=== PATIENT | female | born 1965 | race Caucasian/White ===

== ENCOUNTER 2018-05-27 06:09 | Inpatient (IN) | payer MEDICARE, OTHER ==
--- NOTE | 2018-05-27 06:15 | C.PDOC ---
History Of Present Illness Patient presents to the ER with a complaint of mid epigastric pain associated with some nausea and decreased po intake since yesterday. Patient was recently started on z pack and cough medications for bronchitis. Denies vomiting, fever, or chills. Time Seen by Provider: 05/27/18 06:15 History Per: Patient History/Exam Limitations: no limitations Onset/Duration Of Symptoms: Days (Yesterday) Current Symptoms Are (Timing): Still Present Context: Other Severity: Moderate Pain Scale Rating Of: 4 Location Of Pain/Discomfort: Epigastric Radiation Of Pain To:: None Quality Of Discomfort: Unable To Describe Associated Symptoms: Nausea, Other (Decreased po intake). denies: Fever, Chills, Vomiting Exacerbating Factors: None Alleviating Factors: None Recent travel outside of the [place]: No Additional History Per: Family Abnormal Vaginal Bleeding: No Past Medical History Reviewed: Historical Data, Nursing Documentation, Vital Signs - Medical History PMH: Back Problems, Diabetes, HTN, Hypercholesterolemia, Hypothyroidism Family History: States: No Known Family Hx - Social History Hx Tobacco Use: No Hx Alcohol Use: No Hx Substance Use: No - Immunization History Hx Tetanus Toxoid Vaccination: No Hx Influenza Vaccination: Yes Hx Pneumococcal Vaccination: No Review Of Systems Constitutional: Positive for: Other (Decreased PO intake). Negative for: Fever, Chills Cardiovascular: Negative for: Chest Pain, Palpitations Respiratory: Negative for: Cough, Shortness of Breath Gastrointestinal: Positive for: Nausea, Abdominal Pain. Negative for: Vomiting Neurological: Negative for: Weakness, Numbness Physical Exam - Physical Exam Appears: Non-toxic Skin: Warm, Dry Head: Normacephalic Oral Mucosa: Moist Neck: Trachea Midline, Supple Chest: Symmetrical, No Tenderness Cardiovascular: Rhythm Regular Respiratory: No Rales, No Rhonchi, No Wheezing Gastrointestinal/Abdominal: Soft, Tenderness (Mid epigastric), No Guarding, No Rebound Back: No CVA Tenderness Extremity: Normal ROM Extremity: Bilateral: Atraumatic Neurological/Psych: Oriented x3 Gait: Steady ED Course And Treatment Progress Note: Blood work and urinalysis ordered. IV fluids, morphine, protonix, and zofran administered. Disposition Counseled Patient/Family Regarding: Studies Performed, Diagnosis - Disposition Disposition Time: 06:15 Condition: FAIR - Clinical Impression Clinical Impression: Abdominal pain - Scribe Statement The provider has reviewed the documentation as recorded by the Scribe Quentin Beach All medical record entries made by the Scribe were at my direction and personally dictated by me. I have reviewed the chart and agree that the record accurately reflects my personal performance of the history, physical exam, medical decision making, and the department course for this patient. I have also personally directed, reviewed, and agree with the discharge instructions and disposition. Physician Patient Turnover Patient Signed Over To: Maykel Lua Handoff Comments: pending labs, re-eval and dispo
[2018-05-27] MEDS ORDERED: Sodium Chloride 0.9% 1,000 ML IV ONE ×2 (06:16→07:08)
[2018-05-27 06:21] VITALS: BMI 30.9
[2018-05-27 06:36] LABS: VENOUS BLOOD GAS BASE EXCESS -0.9 mmol/L (0.0-2.0); VENOUS BLOOD GAS PCO2 26 mmHg (40-60); VENOUS BLOOD GAS PO2 33 mm/Hg (30-55); VENOUS BLOOD PH 7.51 (7.32-7.43)
[2018-05-27] MEDS ORDERED: Piperacillin/Tazobact 3.375 gm 100 ML IVPB STA (06:40)
[2018-05-27 06:45] LABS: HCG,QUALITATIVE URINE NEGATIVE (NEGATIVE)
[2018-05-27] MEDS ORDERED: Piperacillin/Tazobact 3.375 gm 100 ML IVPB ONE (06:45)
[2018-05-27 06:51] LABS: BASO # 0.1 K/uL (0.0-0.2); BASO % 0.7 % (0.0-2.0); EOS % 0.2 % (0.0-4.0); HEMOGLOBIN 16.4 g/dL (11.0-16.0); LYMPH # 1.8 K/uL (1.0-4.3); LYMPH % 18.6 % (20.0-40.0); MEAN CELL VOLUME 88.2 fL (81.0-99.0); MEAN CORPUSCULAR HEMOGLOBIN 30.5 pg (27.0-31.0); MEAN CORPUSCULAR HGB CONC 34.6 g/dL (33.0-37.0); MEAN PLATELET VOLUME 8.5 fL (7.2-11.7); MONO # 0.4 K/uL (0.0-0.8); NEUT # 7.6 K/uL (1.8-7.0); NEUT % 76.5 % (50.0-75.0); NRBC % 0.1 % (0.0-2.0); RBC 5.36 Mil/uL (3.80-5.20); RED CELL DISTRIBUTION WIDTH 13.4 % (11.5-14.5); WHITE BLOOD COUNT 9.9 K/uL (4.8-10.8)
[2018-05-27 07:14] LABS: ALB/GLOB RATIO 1.2 (1.0-2.1); ALBUMIN 5.3 g/dL (3.5-5.0); ALT/SGPT 36 U/L (9-52); AST/SGOT 51 U/L (14-36); BLOOD UREA NITROGEN 20 mg/dL (7-17); CALCIUM 10.5 mg/dl (8.6-10.4); GFR NON-AFRICAN AMERICAN 58; LIPASE 113 U/L (23-300)
[2018-05-27] MEDS ORDERED: Sodium Chloride 0.9% 1,000 ML ONE (07:14)
[2018-05-27 07:17] LABS: GRANULAR CAST 6 /lpf (0-1); INR 1.1; PROTHROMBIN TIME 12.3 SECONDS (9.7-12.2); SQUAMOUS EPITHIAL 20 /hpf (0-5); URINE BACTERIA RARE (<OCC); URINE BILIRUBIN NEGATIVE (NEGATIVE); URINE BLOOD NEGATIVE (NEGATIVE); URINE CLARITY Hazy (Clear); URINE COLOR Amber (YELLOW); URINE GLUCOSE (UA) NORMAL (Normal); URINE HYALINE CAST >20 /lpf (0-2); URINE LEUKOCYTE ESTERASE NEG Leu/uL (Negative); URINE PROTEIN 3+ mg/dL (NEGATIVE); URINE UROBILINOGEN NORMAL mg/dL (0.2-1.0)
[2018-05-27] MEDS ORDERED: Morphine 4 MG/ML VIAL IV ONE (07:29)
[2018-05-27] MEDS ORDERED: Iohexol 240 (50 ml) PO ONE (07:30)
[2018-05-27] MEDS ORDERED: Morphine 4 MG/ML VIAL ONE (07:32)
[2018-05-27] MEDS ORDERED: Iohexol 240 (50 ml) ONE (07:37)
[2018-05-27] MEDS ORDERED: Iodixanol 320 MG/ML 100 ML BOTTLE IV ONE (08:49)
--- NOTE | 2018-05-27 10:50 | CT ---
Date of service: 05/27/2018 PROCEDURE: CT Abdomen and Pelvis . HISTORY: abdominal pain COMPARISON: No prior study available comparison. TECHNIQUE: Contiguous axial images of the abdomen pelvis following oral and intravenous injection of approximately 100 cc Visipaque 320 contrast material.. Coronal and Sagittal reformats generated. Radiation dose: Total exam DLP = 814.41 mGy-cm. This CT exam was performed using one or more of the following dose reduction techniques: Automated exposure control, adjustment of the mA and/or kV according to patient size, and/or use of iterative reconstruction technique. FINDINGS: LOWER THORAX: Heart size within range of normal. No significant pericardial effusion. There is a small hiatal hernia. Lung bases clear without acute consolidation. No evidence of basilar pneumothorax. There is a small approximately 5 mm elliptical shaped nodular density abutting the pleural surface left lateral lingular region. LIVER: Liver is upper limits of normal/borderline enlarged measuring over 18 cm in CC dimension. Moderate fatty hepatic infiltration. No obvious hepatic mass collection or calcification. Portal and splenic veins are opacified. GALLBLADDER AND BILE DUCTS: The gallbladder is physiologically distended. No evidence of intraluminal gallbladder calculi. PANCREAS: Pancreas is a slightly atrophic and fatty replaced. No pancreatic masses collections or calcifications.. SPLEEN: Spleen exhibits normal size and attenuation pattern without mass collection or calcification.. ADRENALS: There are no adrenal lesions.. KIDNEYS AND URETERS: Kidneys demonstrate symmetric nephrograms. No evidence of nephrolithiasis or hydronephrosis. The BLADDER: Urinary bladder appears physiologically distended. No evidence of intraluminal urinary bladder calculi.. REPRODUCTIVE: Unremarkable. APPENDIX: Normal appendix of best seen on axial series 3 image number sign number sign [id number]. No evidence of acute appendicitis. BOWEL: Evaluation of the bowel is limited due to incomplete opacification. The stomach is fairly significantly distended with oral contrast material and air. There is also dilatation of the duodenum and proximal jejunum with an apparent transition point in the left upper/mid abdomen with fecalized content in the distended small bowel just proximal to the transition point. Findings could represent partial and or intermittent obstruction as there is stool and air are present throughout the colon. Interval follow-up of plain film radiographs of the abdomen recommended to assess for passage of oral contrast material into the colon and exclude complete proximal small bowel obstruction.. Scattered colonic diverticula are seen along the transverse colon. Most of the left colon and sigmoid collapsed. PERITONEUM: No gross free intraperitoneal air. No free or loculated fluid collections.. LYMPH NODES: There are a few small nonspecific retroperitoneal lymph nodes. VASCULATURE: Unremarkable. No aortic aneurysm. No aortic atherosclerotic calcification or mural plaque present. BONES: There has been discectomy at the L4-L5 level with posterior fixation accomplished by in situ short-segment bilateral [place] rods are attached the right and left pedicles of the L4-L5 segments. OTHER FINDINGS: None. IMPRESSION: Stomach is markedly distended with dilatation of the duodenum and proximal jejunum. Apparent transition point in the left parasagittal upper/mid abdomen the. Findings may represent of partial and or intermittent small bowel obstruction. Recommend interval radiographs of the abdomen to assess for passage of oral contrast material into the colon and exclude complete proximal small bowel obstruction Few scattered colonic diverticula without radiographic evidence of acute diverticulitis.. Borderline hepatomegaly with fatty hepatic infiltration. 5 mm elliptical shaped nodule to the pleural surface left lingular region. Follow-up nonemergent CT scan of the chest recommended further evaluation and to serve as baseline for future comparison studies.
[2018-05-27 10:54] LABS: VENOUS BLOOD GAS BASE EXCESS -2.2 mmol/L (0.0-2.0); VENOUS BLOOD GAS PCO2 44 mmHg (40-60); VENOUS BLOOD GAS PO2 19 mm/Hg (30-55); VENOUS BLOOD PH 7.34 (7.32-7.43)
--- NOTE | 2018-05-27 11:32 | CP.PCM.CON ---
<Yordan Crawford - Last Filed: 05/27/18 11:55> History of Present Illness - History of Present Illness History of Present Illness: General Surgery Consult Note for Dr. Roberts This 52F with a PMH of Hypothyroid, HTN, DM and currently active bronchitis, No history of abdominal surgeries presents to ED with diffuse abdominal pain that began at 1pm yesterday after eating a vegetable rich lunch. She reports 3 episodes of non-bilious non-bloody emesis that had the appearance of her previous meal. She denies any pervious episodes. At the time nothing made it better and nothing made it worse. She reports last BM was last night and was normal caliber not loos or hard and non bloody. She reports regular flatus. In the ED she received a CT with PO contrast which was interpreted partial bowel or intermittent obstruction. Patient stated she feels better than she felt last night. She currently denies abdominal pain, nausea, vomiting, chest pain, palpations, SOB, diarrhea and constipation. PMH: Hypothyroid, HTN, and DM Surgical: Low back surgery and foot surgery Fam hx: Denies Social: Denies tobacco, alcohol, recreational drugs Allergies: NKDA Review of Systems - Constitutional Constitutional: absent: Anorexia, Chills, Fever - EENT Eyes: absent: Blind Spots, Blurred Vision Ears: absent: Decreased Hearing, Tinnitus, Disequilibrium, Dizziness Nose/Mouth/Throat: absent: Nasal Discharge, Dysphagia, Hoarsness - Cardiovascular Cardiovascular: absent: Chest Pain, Dyspnea - Respiratory Respiratory: absent: Dyspnea, Dyspnea on Exertion - Gastrointestinal Gastrointestinal: Abdominal Pain (Currently resolved), Belching, Nausea (Resolved), Vomiting (Resolved). absent: Diarrhea, Hematochezia, Loose Stools, Melena - Genitourinary Genitourinary: absent: Dysuria, Hematuria - Musculoskeletal Musculoskeletal: absent: Arthralgias, Myalgias - Integumentary Integumentary: absent: Lesions, Rash, Skin Ulcer, Sores - Neurological Neurological: absent: Convulsions, Disequilibrium, Syncope - Psychiatric Psychiatric: Depression. absent: Homicidal Ideation, Suicidal Ideation - Hematologic/Lymphatic Additional comments: As per HPI Past Patient History - Past Social History Smoking Status: Never Smoked - CARDIAC Hx Hypercholesterolemia: Yes Hx Hypertension: Yes - ENDOCRINE/METABOLIC Hx Hypothyroidism: Yes - GASTROINTESTINAL Hx Gastroesophageal Reflux: Yes - PSYCHIATRIC Hx Substance Use: No - SURGICAL HISTORY Hx Surgeries: Yes Hx Orthopedic Surgery: Yes Other/Comment: back surgery; - ANESTHESIA Hx Anesthesia: Yes Hx Anesthesia Reactions: No Hx Malignant Hyperthermia: No Meds Allergies/Adverse Reactions: Allergies Allergy/AdvReac Type Severity Reaction Status Date / Time No Known Allergies Allergy Verified 05/27/18 08:02 Physical Exam - Constitutional Appears: Non-toxic, No Acute Distress - Head Exam Head Exam: ATRAUMATIC, NORMOCEPHALIC - Eye Exam Eye Exam: EOMI - ENT Exam ENT Exam: Mucous Membranes Moist - Respiratory Exam Respiratory Exam: Clear to Auscultation Bilateral, NORMAL BREATHING PATTERN - Cardiovascular Exam Cardiovascular Exam: REGULAR RHYTHM, +S1, +S2. absent: Gallop, Rubs - GI/Abdominal Exam GI & Abdominal Exam: Normal Bowel Sounds, Soft. absent: Diminished Bowel Sound s, Distended, Guarding, Hernia, Hyperactive Bowel Sounds, Hypoactive Bowel Sounds, Organomegaly, Rebound, Rigid, Tenderness - Neurological Exam Neurological exam: Alert - Psychiatric Exam Psychiatric exam: Normal Affect, Normal Mood - Skin Skin Exam: Dry, Intact Results - Vital Signs Recent Vital Signs: Last Vital Signs Temp 97.4 F L 05/27/18 06:17 Pulse 93 H 05/27/18 10:45 Resp 18 05/27/18 10:45 BP 136/71 05/27/18 10:45 Pulse Ox 97 05/27/18 11:02 - Labs Result Diagrams: 05/27/18 06:30 05/27/18 06:30 Labs: Laboratory Results - last 24 hr 05/27/18 05/27/18 05/27/18 06:30 06:30 06:30 WBC 9.9 RBC 5.36 H Hgb 16.4 H Hct 47.3 H MCV 88.2 MCH 30.5 MCHC 34.6 RDW 13.4 Plt Count 359 MPV 8.5 Neut % (Auto) 76.5 H Lymph % (Auto) 18.6 L [place] % (Auto) 4.0 Eos % (Auto) 0.2 Baso % (Auto) 0.7 Neut # (Auto) 7.6 H Lymph # (Auto) 1.8 [place] # (Auto) 0.4 Eos # (Auto) 0.0 Baso # (Auto) 0.1 PT 12.3 H INR 1.1 APTT 31 pO2 VBG pH VBG pCO2 VBG HCO3 VBG Total CO2 VBG O2 Sat (Calc) VBG Base Excess VBG Potassium Sodium 138 Chloride 101 Glucose Lactate Potassium 4.6 Carbon Dioxide 17 L Anion Gap 25 H BUN 20 H Creatinine 1.0 Est GFR ( Amer) > 60 Est GFR (Non-Af Amer) 58 POC Glucose (mg/dL) Random Glucose 185 H Calcium 10.5 H Total Bilirubin 1.1 AST 51 H ALT 36 Alkaline Phosphatase 68 Total Protein 9.9 H Albumin 5.3 H Globulin 4.6 H Albumin/Globulin Ratio 1.2 Lipase 113 Venous Blood Potassium Urine Color Urine Clarity Urine pH Ur Specific [place] Urine Protein Urine Glucose (UA) Urine Ketones Urine Blood Urine Nitrate Urine Bilirubin Urine Urobilinogen Ur Leukocyte Esterase Urine WBC (Auto) Urine RBC (Auto) Ur Squamous Epith Cells Urine Bacteria Hyaline Casts Granular Casts (Auto) Urine HCG, Qual B-Hydroxybutyrate 0.20 05/27/18 05/27/18 05/27/18 06:30 06:30 06:30 WBC RBC Hgb Hct MCV MCH MCHC RDW Plt Count MPV Neut % (Auto) Lymph % (Auto) [place] % (Auto) Eos % (Auto) Baso % (Auto) Neut # (Auto) Lymph # (Auto) [place] # (Auto) Eos # (Auto) Baso # (Auto) PT INR APTT pO2 33 VBG pH 7.51 H VBG pCO2 26 L VBG HCO3 23.5 VBG Total CO2 21.5 L VBG O2 Sat (Calc) 72.7 H VBG Base Excess -0.9 L VBG Potassium 5.2 Sodium 139.0 Chloride 106.0 Glucose 191 H Lactate 3.9 H Potassium Carbon Dioxide Anion Gap BUN Creatinine Est GFR ( Amer) Est GFR (Non-Af Amer) POC Glucose (mg/dL) 171 H Random Glucose Calcium Total Bilirubin AST ALT Alkaline Phosphatase Total Protein Albumin Globulin Albumin/Globulin Ratio Lipase Venous Blood Potassium 5.2 Urine Color [place] Urine Clarity Hazy Urine pH 5.0 Ur Specific [place] 1.031 H Urine Protein 3+ H Urine Glucose (UA) Normal Urine Ketones Negative Urine Blood Negative Urine Nitrate Negative Urine Bilirubin Negative Urine Urobilinogen Normal Ur Leukocyte Esterase Neg Urine WBC (Auto) 5 Urine RBC (Auto) 10 H Ur Squamous Epith Cells 20 H Urine Bacteria Rare Hyaline Casts >20 H Granular Casts (Auto) 6 Urine HCG, Qual Negative B-Hydroxybutyrate 05/27/18 10:46 WBC RBC Hgb Hct MCV MCH MCHC RDW Plt Count MPV Neut % (Auto) Lymph % (Auto) [place] % (Auto) Eos % (Auto) Baso % (Auto) Neut # (Auto) Lymph # (Auto) [place] # (Auto) Eos # (Auto) Baso # (Auto) PT INR APTT pO2 19 L VBG pH 7.34 VBG pCO2 44 VBG HCO3 21.3 VBG Total CO2 25.1 VBG O2 Sat (Calc) 38.4 L VBG Base Excess -2.2 L VBG Potassium 3.9 Sodium 139.0 Chloride 108.0 H Glucose 117 H Lactate 1.6 Potassium Carbon Dioxide Anion Gap BUN Creatinine Est GFR ( Amer) Est GFR (Non-Af Amer) POC Glucose (mg/dL) Random Glucose Calcium Total Bilirubin AST ALT Alkaline Phosphatase Total Protein Albumin Globulin Albumin/Globulin Ratio Lipase Venous Blood Potassium 3.9 Urine Color Urine Clarity Urine pH Ur Specific [place] Urine Protein Urine Glucose (UA) Urine Ketones Urine Blood Urine Nitrate Urine Bilirubin Urine Urobilinogen Ur Leukocyte Esterase Urine WBC (Auto) Urine RBC (Auto) Ur Squamous Epith Cells Urine Bacteria Hyaline Casts Granular Casts (Auto) Urine HCG, Qual B-Hydroxybutyrate - Imaging and Cardiology CT scan - abdomen Status: Image reviewed by me, Report reviewed by me CT scan - pelvis Status: Image reviewed by me, Report reviewed by me Assessment & Plan - Assessment and Plan (Free Text) Assessment: 52 YO F with PMH HTN, DM, hypothyroid and hypercholestremia with resolving abdominal pain Plan: - NG tube if patient has complaints of nausea/vomiting or worsening symptoms - Serial abdominal exams - CLD - Discussed plan with Dr Alejandra Crawford PGY3 <Roman Roberts B - Last Filed: 05/29/18 19:38> Results - Vital Signs Recent Vital Signs: Last Vital Signs Temp 98.2 F 05/28/18 16:00 Pulse 82 05/28/18 16:00 Resp 20 05/28/18 16:00 BP 108/71 05/28/18 16:00 Pulse Ox 100 05/28/18 16:00 - Labs Result Diagrams: 05/28/18 08:19 05/28/18 08:19 Labs: Laboratory Results - last 24 hr 05/28/18 08:19 Hemoglobin A1c 6.9 H Attending/Attestation - Attestation I have personally seen and examined this patient.: Yes I have fully participated in the care of the patient.: Yes I have reviewed all pertinent clinical information: Yes Notes (Text): Pt was seen and examined at bedside Agree with above note and assessment Pt with abdominal pain and nausea Abdomen: soft, NT, ND Labs and radiology reviewed Ass: Abdominal Pain, possible resolved PSBO Plan: Observation AXR in am if pain in abdomen Plan d.w pt in detail Risk and benefit explained in detail.
[2018-05-27 14:28] VITALS: RESP 20
[2018-05-27] MEDS ORDERED: Glucagon Recombinant 1 mg Inj IM PRN (15:01)
[2018-05-27] MEDS ORDERED: HYDROmorphone 1 mg/ml ISec IVP PRN (15:06)
--- NOTE | 2018-05-27 15:33 | CP.PCM.HP ---
History of Present Illness - History of Present Illness History of Present Illness: CC: Abdominal pain and vomiting HPI: Patient is a 52 year old female with a PMHx of DM2, HTN, hypothyroidism, acid reflux, currently being treated for bronchitis(on day 3 of z-pack) who presents to the ED today with complaints of post-prandial acute abdominal pain and 3 episodes of non-bloody, non-bilious emesis that began yesterday at 1pm. Patient reports eating a lunch consisting of rice and vegetables and experienced pain and emesis shortly thereafter. Patient reports pain is sharp/crampy, persistent, isolated to the epigastrium. Patient reports she never experienced these symptoms before. Her last BM was yesterday evening, formed, not dark or bloody. Denies chills, chest pain, SOB, nausea, dysuria. PMD: Dr. Fontanez PMHx: DM2, HTN, hypothyroid, acid reflux, bronchitis PSHx: laparoscopic b/l tubal ligation (1989), orthopedic vertebral and right great toe surgery. Fam Hx: DM, heart disease Soc Hx: Denies Meds: metformin 500mg BID, lisinopril 10mg qd, levothyroxine 125 mcg qd, (currently on day 3 of z-pack) Allergies: NKDA Present on Admission - Present on Admission Any Indicators Present on Admission: No Review of Systems - EENT Nose/Mouth/Throat: absent: Sore Throat - Cardiovascular Cardiovascular: absent: Chest Pain, Dyspnea, Lightheadedness - Respiratory Respiratory: Cough, Chest Congestion. absent: Dyspnea, Hemoptysis - Gastrointestinal Gastrointestinal: Abdominal Pain, Cramping. absent: Coffee Ground Emesis, Diarrhea, Heartburn, Hematemesis, Loose Stools, Melena, Nausea - Genitourinary Genitourinary: absent: Dysuria - Neurological Neurological: absent: Disequilibrium Past Patient History - Past Medical History & Family History Past Medical History?: Yes - Past Social History Smoking Status: Never Smoked - CARDIAC Hx Hypercholesterolemia: Yes Hx Hypertension: Yes - PULMONARY Hx Respiratory Disorders: Yes Hx Bronchitis: Yes - NEUROLOGICAL Hx Neurological Disorder: No - HEENT Hx HEENT Problems: No - RENAL Hx Chronic Kidney Disease: No - ENDOCRINE/METABOLIC Hx Diabetes Mellitus Type 2: Yes Hx Hypothyroidism: Yes - HEMATOLOGICAL/ONCOLOGICAL Hx Blood Disorders: No - INTEGUMENTARY Hx Dermatological Problems: No - MUSCULOSKELETAL/RHEUMATOLOGICAL Hx Musculoskeletal Disorders: Yes Hx Falls: No - GASTROINTESTINAL Hx Gastroesophageal Reflux: Yes - PSYCHIATRIC Hx Substance Use: No - SURGICAL HISTORY Hx Surgeries: Yes Hx Orthopedic Surgery: Yes Other/Comment: back surgery; - ANESTHESIA Hx Anesthesia: Yes Hx Anesthesia Reactions: No Hx Malignant Hyperthermia: No Meds Allergies/Adverse Reactions: Allergies Allergy/AdvReac Type Severity Reaction Status Date / Time No Known Allergies Allergy Verified 05/27/18 08:02 Physical Exam - Constitutional Appears: Non-toxic, No Acute Distress - Head Exam Head Exam: ATRAUMATIC, NORMAL INSPECTION, NORMOCEPHALIC - Eye Exam Eye Exam: EOMI, Normal appearance - ENT Exam ENT Exam: Mucous Membranes Dry - Neck Exam Neck exam: Positive for: Normal Inspection - Respiratory Exam Respiratory Exam: Clear to Auscultation Bilateral, NORMAL BREATHING PATTERN. absent: Respiratory Distress - Cardiovascular Exam Cardiovascular Exam: Tachycardia, REGULAR RHYTHM, +S1, +S2. absent: Systolic Murmur - GI/Abdominal Exam GI & Abdominal Exam: Normal Bowel Sounds, Soft, Tenderness (minimal tenderness to palpation epigastrium). absent: Distended - Extremities Exam Extremities exam: Positive for: normal inspection. Negative for: calf tenderness, pedal edema - Neurological Exam Neurological exam: Alert, Oriented x3 - Psychiatric Exam Psychiatric exam: Normal Affect, Normal Mood - Skin Skin Exam: Dry, Intact, Normal Color, Warm Results - Vital Signs Recent Vital Signs: Last Vital Signs Temp 98.7 F 05/27/18 14:30 Pulse 92 H 05/27/18 14:30 Resp 20 05/27/18 14:30 BP 143/83 05/27/18 14:30 Pulse Ox 97 05/27/18 14:30 - Labs Result Diagrams: 05/27/18 06:30 05/27/18 06:30 Labs: Laboratory Results - last 24 hr 05/27/18 05/27/18 05/27/18 06:30 06:30 06:30 WBC 9.9 RBC 5.36 H Hgb 16.4 H Hct 47.3 H MCV 88.2 MCH 30.5 MCHC 34.6 RDW 13.4 Plt Count 359 MPV 8.5 Neut % (Auto) 76.5 H Lymph % (Auto) 18.6 L [place] % (Auto) 4.0 Eos % (Auto) 0.2 Baso % (Auto) 0.7 Neut # (Auto) 7.6 H Lymph # (Auto) 1.8 [place] # (Auto) 0.4 Eos # (Auto) 0.0 Baso # (Auto) 0.1 PT 12.3 H INR 1.1 APTT 31 pO2 VBG pH VBG pCO2 VBG HCO3 VBG Total CO2 VBG O2 Sat (Calc) VBG Base Excess VBG Potassium Sodium 138 Chloride 101 Glucose Lactate Potassium 4.6 Carbon Dioxide 17 L Anion Gap 25 H BUN 20 H Creatinine 1.0 Est GFR ( Amer) > 60 Est GFR (Non-Af Amer) 58 POC Glucose (mg/dL) Random Glucose 185 H Calcium 10.5 H Total Bilirubin 1.1 AST 51 H ALT 36 Alkaline Phosphatase 68 Total Protein 9.9 H Albumin 5.3 H Globulin 4.6 H Albumin/Globulin Ratio 1.2 Lipase 113 Venous Blood Potassium Urine Color Urine Clarity Urine pH Ur Specific [place] Urine Protein Urine Glucose (UA) Urine Ketones Urine Blood Urine Nitrate Urine Bilirubin Urine Urobilinogen Ur Leukocyte Esterase Urine WBC (Auto) Urine RBC (Auto) Ur Squamous Epith Cells Urine Bacteria Hyaline Casts Granular Casts (Auto) Urine HCG, Qual B-Hydroxybutyrate 0.20 05/27/18 05/27/18 05/27/18 06:30 06:30 06:30 WBC RBC Hgb Hct MCV MCH MCHC RDW Plt Count MPV Neut % (Auto) Lymph % (Auto) [place] % (Auto) Eos % (Auto) Baso % (Auto) Neut # (Auto) Lymph # (Auto) [place] # (Auto) Eos # (Auto) Baso # (Auto) PT INR APTT pO2 33 VBG pH 7.51 H VBG pCO2 26 L VBG HCO3 23.5 VBG Total CO2 21.5 L VBG O2 Sat (Calc) 72.7 H VBG Base Excess -0.9 L VBG Potassium 5.2 Sodium 139.0 Chloride 106.0 Glucose 191 H Lactate 3.9 H Potassium Carbon Dioxide Anion Gap BUN Creatinine Est GFR ( Amer) Est GFR (Non-Af Amer) POC Glucose (mg/dL) 171 H Random Glucose Calcium Total Bilirubin AST ALT Alkaline Phosphatase Total Protein Albumin Globulin Albumin/Globulin Ratio Lipase Venous Blood Potassium 5.2 Urine Color [place] Urine Clarity Hazy Urine pH 5.0 Ur Specific [place] 1.031 H Urine Protein 3+ H Urine Glucose (UA) Normal Urine Ketones Negative Urine Blood Negative Urine Nitrate Negative Urine Bilirubin Negative Urine Urobilinogen Normal Ur Leukocyte Esterase Neg Urine WBC (Auto) 5 Urine RBC (Auto) 10 H Ur Squamous Epith Cells 20 H Urine Bacteria Rare Hyaline Casts >20 H Granular Casts (Auto) 6 Urine HCG, Qual Negative B-Hydroxybutyrate 05/27/18 05/27/18 10:46 15:12 WBC RBC Hgb Hct MCV MCH MCHC RDW Plt Count MPV Neut % (Auto) Lymph % (Auto) [place] % (Auto) Eos % (Auto) Baso % (Auto) Neut # (Auto) Lymph # (Auto) [place] # (Auto) Eos # (Auto) Baso # (Auto) PT INR APTT pO2 19 L VBG pH 7.34 VBG pCO2 44 VBG HCO3 21.3 VBG Total CO2 25.1 VBG O2 Sat (Calc) 38.4 L VBG Base Excess -2.2 L VBG Potassium 3.9 Sodium 139.0 Chloride 108.0 H Glucose 117 H Lactate 1.6 Potassium Carbon Dioxide Anion Gap BUN Creatinine Est GFR ( Amer) Est GFR (Non-Af Amer) POC Glucose (mg/dL) 132 H Random Glucose Calcium Total Bilirubin AST ALT Alkaline Phosphatase Total Protein Albumin Globulin Albumin/Globulin Ratio Lipase Venous Blood Potassium 3.9 Urine Color Urine Clarity Urine pH Ur Specific [place] Urine Protein Urine Glucose (UA) Urine Ketones Urine Blood Urine Nitrate Urine Bilirubin Urine Urobilinogen Ur Leukocyte Esterase Urine WBC (Auto) Urine RBC (Auto) Ur Squamous Epith Cells Urine Bacteria Hyaline Casts Granular Casts (Auto) Urine HCG, Qual B-Hydroxybutyrate Assessment & Plan - Assessment and Plan (Free Text) Assessment: 52 year old female with PMHx DM2, HTN, hypothyroidism, acid reflux admitted for evaluation and treatment of possible SBO Plan: Possible SBO -CT in ED -CLD -zofran -pain control, dilaudid prn -NS @75/hr -abdominal exams -sx consult, Dr. Roberts DM2 -ISS -accuchecks ACHS -hold metformin -f/u Hgb a1c HTN -lisinopril 10mg qd Hypothyroid -levothyroxine 125 mcg -f/u TSH Ppx -SCDs -protonix 40mg IV qd Discussed with Dr. Jacobo Ziegler, PGY-1
[2018-05-27] MEDS: Sodium Chloride 0.9% 1,000 ML IV SCH (16:00)
[2018-05-27] MEDS: (Novolin R) Insulin Human Regular 100 units/ml vial SC SCH ×2 (16:30→21:54)
[2018-05-28] MEDS: Sodium Chloride 0.9% 1,000 ML IV SCH (05:50)
[2018-05-28] MEDS ORDERED: Levothyroxine 125 MCG TAB PO SCH (06:30)
[2018-05-28] MEDS: (Novolin R) Insulin Human Regular 100 units/ml vial SC SCH ×3 (07:58→17:18)
--- NOTE | 2018-05-28 08:05 | CP.PCM.PN ---
Objective - Vital Signs/Intake and Output Vital Signs (last 24 hours): Temp Pulse Resp BP Pulse Ox 97.6 F 86 20 110/72 96 05/28/18 00:00 05/28/18 00:00 05/28/18 00:00 05/28/18 00:00 05/28/18 00:00 Intake and Output: 05/28/18 05/28/18 06:59 18:59 Intake Total 1925 Balance 1925 - Medications Medications: Current Medications Azithromycin (Zithromax) 250 mg PO DAILY [facility]; Protocol Stop: 05/29/18 10:01 Last Admin: 05/27/18 17:56 Dose: 250 mg Dextrose (Glutose 15) 0 gm PO ONCE PRN; Protocol PRN Reason: Hypoglycemia Protocol Glucagon (Glucagen Diagnostic Kit) 0 mg IM STAT PRN; Protocol PRN Reason: Hypoglycemia Protocol Hydromorphone HCl (Dilaudid) 1 mg IVP Q4H PRN PRN Reason: Pain, severe (8-10) Dextrose (Dextrose 5% In Water 1000 Ml) 1,000 mls @ 0 mls/hr IV .Q0M PRN; Protocol PRN Reason: Hypoglycemia Protocol Sodium Chloride (Sodium Chloride 0.9%) 1,000 mls @ 75 mls/hr IV .[id number] [facility] Last Admin: 05/28/18 05:50 Dose: 75 mls/hr Insulin Human Regular (Novolin R) 0 unit SC ACHS [facility]; Protocol Last Admin: 05/28/18 07:58 Dose: Not Given Levothyroxine Sodium (Synthroid) 125 mcg PO 0630 [facility] Last Admin: 05/28/18 06:00 Dose: 125 mcg Lisinopril (Zestril) 10 mg PO DAILY [facility] Last Admin: 05/27/18 17:55 Dose: 10 mg Ondansetron HCl (Zofran Inj) 4 mg IVP Q8 PRN PRN Reason: Nausea/Vomiting Pantoprazole Sodium (Protonix Inj) 40 mg IVP DAILY [facility] Pneumococcal Polyvalent Vaccine (Pneumovax 23 Vaccine) 0.5 ml IM .ONCE ONE Stop: 05/28/18 10:01 - Labs Labs: 05/27/18 06:30 05/27/18 06:30 PT 12.3 SECONDS (9.7-12.2) H 05/27/18 06:30 INR 1.1 05/27/18 06:30 APTT 31 SECONDS (21-34) 05/27/18 06:30
[2018-05-28 08:27] LABS: BASO % 0.2 % (0.0-2.0); EOS # 0.1 K/uL (0.0-0.7); EOS % 1.6 % (0.0-4.0); LYMPH # 1.3 K/uL (1.0-4.3); LYMPH % 22.9 % (20.0-40.0); MEAN CELL VOLUME 87.9 fL (81.0-99.0); MEAN CORPUSCULAR HEMOGLOBIN 29.6 pg (27.0-31.0); MEAN CORPUSCULAR HGB CONC 33.6 g/dL (33.0-37.0); MEAN PLATELET VOLUME 8.5 fL (7.2-11.7); MONO # 0.3 K/uL (0.0-0.8); MONO % 5.5 % (0.0-10.0); NEUT % 69.8 % (50.0-75.0); RBC 4.42 Mil/uL (3.80-5.20); RED CELL DISTRIBUTION WIDTH 13.6 % (11.5-14.5); WHITE BLOOD COUNT 5.8 K/uL (4.8-10.8)
[2018-05-28 08:35] LABS: HEMOGLOBIN 13.1 g/dL (11.0-16.0)
[2018-05-28 08:54] LABS: ALB/GLOB RATIO 1.4 (1.0-2.1); ALBUMIN 3.9 g/dL (3.5-5.0); ALT/SGPT 31 U/L (9-52); AST/SGOT 18 U/L (14-36); BLOOD UREA NITROGEN 11 mg/dL (7-17); CALCIUM 8.4 mg/dl (8.6-10.4); GFR NON-AFRICAN AMERICAN > 60
--- NOTE | 2018-05-28 08:57 | CP.PCM.PN ---
<[email or web address] - Last Filed: 05/28/18 08:53> Subjective - Date & Time of Evaluation Date of Evaluation: 05/28/18 Time of Evaluation: 07:30 - Subjective Subjective: Surgery Progress note. Dr. Roberts service Pt seen and examined at bedside this morning. Admits to having flatus. No N/V. Denies any F/C. No abd pain. Wants to go home. Objective - Vital Signs/Intake and Output Vital Signs (last 24 hours): Temp Pulse Resp BP Pulse Ox 97.6 F 86 20 110/72 96 05/28/18 00:00 05/28/18 00:00 05/28/18 00:00 05/28/18 00:00 05/28/18 00:00 Intake and Output: 05/28/18 05/28/18 06:59 18:59 Intake Total 1925 Balance 1925 - Medications Medications: Current Medications Azithromycin (Zithromax) 250 mg PO DAILY [facility]; Protocol Stop: 05/29/18 10:01 Last Admin: 05/27/18 17:56 Dose: 250 mg Dextrose (Glutose 15) 0 gm PO ONCE PRN; Protocol PRN Reason: Hypoglycemia Protocol Glucagon (Glucagen Diagnostic Kit) 0 mg IM STAT PRN; Protocol PRN Reason: Hypoglycemia Protocol Hydromorphone HCl (Dilaudid) 1 mg IVP Q4H PRN PRN Reason: Pain, severe (8-10) Dextrose (Dextrose 5% In Water 1000 Ml) 1,000 mls @ 0 mls/hr IV .Q0M PRN; Protocol PRN Reason: Hypoglycemia Protocol Sodium Chloride (Sodium Chloride 0.9%) 1,000 mls @ 75 mls/hr IV .[id number] [facility] Last Admin: 05/28/18 05:50 Dose: 75 mls/hr Insulin Human Regular (Novolin R) 0 unit SC ACHS [facility]; Protocol Last Admin: 05/28/18 07:58 Dose: Not Given Levothyroxine Sodium (Synthroid) 125 mcg PO 0630 [facility] Last Admin: 05/28/18 06:00 Dose: 125 mcg Lisinopril (Zestril) 10 mg PO DAILY [facility] Last Admin: 05/27/18 17:55 Dose: 10 mg Ondansetron HCl (Zofran Inj) 4 mg IVP Q8 PRN PRN Reason: Nausea/Vomiting Pantoprazole Sodium (Protonix Inj) 40 mg IVP DAILY [facility] Pneumococcal Polyvalent Vaccine (Pneumovax 23 Vaccine) 0.5 ml IM .ONCE ONE Stop: 05/28/18 10:01 - Labs Labs: 05/28/18 08:19 05/27/18 06:30 PT 12.3 SECONDS (9.7-12.2) H 05/27/18 06:30 INR 1.1 05/27/18 06:30 APTT 31 SECONDS (21-34) 05/27/18 06:30 - Constitutional Appears: Well, Non-toxic, No Acute Distress - Head Exam Head Exam: ATRAUMATIC, NORMAL INSPECTION, NORMOCEPHALIC - Eye Exam Eye Exam: EOMI, Normal appearance - ENT Exam ENT Exam: Mucous Membranes Moist - Respiratory Exam Respiratory Exam: NORMAL BREATHING PATTERN. absent: Accessory Muscle Use, Respiratory Distress - Cardiovascular Exam Cardiovascular Exam: absent: JVD - GI/Abdominal Exam GI & Abdominal Exam: Soft. absent: Distended, Guarding, Rigid, Tenderness, Rebound - Extremities Exam Extremities Exam: Normal Inspection - Neurological Exam Neurological Exam: Alert, Awake, Oriented x3 - Psychiatric Exam Psychiatric exam: Normal Affect, Normal Mood - Skin Skin Exam: Dry, Intact, Normal Color, Warm Assessment and Plan - Assessment and Plan (Free Text) Assessment: 52yo F with possible partial SBO Plan: - Tolerating diet. Advance diet as tolerated. - No acute surgical intervention warranted at this time Further recs as per Dr. Alejandra Rodriguez PGY2 Surgery <Roman Roberts - Last Filed: 05/29/18 19:39> Objective - Vital Signs/Intake and Output Vital Signs (last 24 hours): Temp Pulse Resp BP Pulse Ox 98.2 F 82 20 108/71 100 05/28/18 16:00 05/28/18 16:00 05/28/18 16:00 05/28/18 16:00 05/28/18 16:00 - Labs Labs: 05/28/18 08:19 05/28/18 08:19 PT 12.3 SECONDS (9.7-12.2) H 05/27/18 06:30 INR 1.1 05/27/18 06:30 APTT 31 SECONDS (21-34) 05/27/18 06:30 Attending/Attestation - Attestation I have personally seen and examined this patient.: Yes I have fully participated in the care of the patient.: Yes I have reviewed all pertinent clinical information, including history, physical exam and plan: Yes Notes (Text): Pt was seen and examined at bedside Agree with above note and assessment Pt with resolved PSBO Advance diet as tolerated DC home with PO Cipro and flagyl for 7 day f.u with PMD Plan d.w pt in detail Risk and benefit explained in detail.
[2018-05-28 09:28] VITALS: PULSE 82
[2018-05-28] MEDS ORDERED: Pneumococcal 23-Valent Vaccine IM ONE (10:00)
[2018-05-28 17:37] VITALS: BP 108/71; TEMP 98.2; O2SAT 100
--- NOTE | 2018-05-28 19:55 | CP.PCM.DIS ---
Provider - Provider Date of Admission: 05/27/18 11:24 Attending physician: Efra Centeno Jr, MD Primary care physician: Dr. Fontanez Consults: 05/27/18 11:03 Physician Consult Stat Comment: Consulting Provider: Roman Roberts Consulting Physician: Roman Roberts Reason for Consult: small bowel obstruction Time Spent in preparation of Discharge (in minutes): 45 Diagnosis - Discharge Diagnosis (1) Small bowel obstruction, partial Status: Acute Comment: pain subsided, tolerated diet, d/c w/ abx Hospital Course - Lab Results Lab Results: Most Recent Lab Values WBC 5.8 K/uL (4.8-10.8) 05/28/18 08:19 RBC 4.42 Mil/uL (3.80-5.20) 05/28/18 08:19 Hgb 13.1 g/dL (11.0-16.0) D 05/28/18 08:19 Hct 38.9 % (34.0-47.0) 05/28/18 08:19 MCV 87.9 fL (81.0-99.0) 05/28/18 08:19 MCH 29.6 pg (27.0-31.0) 05/28/18 08:19 MCHC 33.6 g/dL (33.0-37.0) 05/28/18 08:19 RDW 13.6 % (11.5-14.5) 05/28/18 08:19 Plt Count 254 K/uL (130-400) D 05/28/18 08:19 MPV 8.5 fL (7.2-11.7) 05/28/18 08:19 Neut % (Auto) 69.8 % (50.0-75.0) 05/28/18 08:19 Lymph % (Auto) 22.9 % (20.0-40.0) 05/28/18 08:19 Garza % (Auto) 5.5 % (0.0-10.0) 05/28/18 08:19 Eos % (Auto) 1.6 % (0.0-4.0) 05/28/18 08:19 Baso % (Auto) 0.2 % (0.0-2.0) 05/28/18 08:19 Neut # (Auto) 4.0 K/uL (1.8-7.0) 05/28/18 08:19 Lymph # (Auto) 1.3 K/uL (1.0-4.3) 05/28/18 08:19 Garza # (Auto) 0.3 K/uL (0.0-0.8) 05/28/18 08:19 Eos # (Auto) 0.1 K/uL (0.0-0.7) 05/28/18 08:19 Baso # (Auto) 0.0 K/uL (0.0-0.2) 05/28/18 08:19 PT 12.3 SECONDS (9.7-12.2) H 05/27/18 06:30 INR 1.1 05/27/18 06:30 APTT 31 SECONDS (21-34) 05/27/18 06:30 pO2 19 mm/Hg (30-55) L 05/27/18 10:46 VBG pH 7.34 (7.32-7.43) 05/27/18 10:46 VBG pCO2 44 mmHg (40-60) 05/27/18 10:46 VBG HCO3 21.3 mmol/L 05/27/18 10:46 VBG Total CO2 25.1 mmol/L (22-28) 05/27/18 10:46 VBG O2 Sat (Calc) 38.4 % (40-65) L 05/27/18 10:46 VBG Base Excess -2.2 mmol/L (0.0-2.0) L 05/27/18 10:46 VBG Potassium 3.9 mmol/L (3.6-5.2) 05/27/18 10:46 Sodium 139.0 mmol/l (132-148) 05/27/18 10:46 Chloride 108.0 mmol/L (98-107) H 05/27/18 10:46 Glucose 117 mg/dl (65-105) H 05/27/18 10:46 Lactate 1.6 mmol/L (0.7-2.1) 05/27/18 10:46 Sodium 140 mmol/L (132-148) 05/28/18 08:19 Potassium 4.0 mmol/L (3.6-5.2) 05/28/18 08:19 Chloride 108 mmol/L (98-107) H 05/28/18 08:19 Carbon Dioxide 24 mmol/L (22-30) 05/28/18 08:19 Anion Gap 11 (10-20) 05/28/18 08:19 BUN 11 mg/dL (7-17) 05/28/18 08:19 Creatinine 0.5 mg/dL (0.7-1.2) L 05/28/18 08:19 Est GFR ( Amer) > 60 05/28/18 08:19 Est GFR (Non-Af Amer) > 60 05/28/18 08:19 POC Glucose (mg/dL) 112 mg/dL (65-110) H 05/28/18 16:19 Random Glucose 120 mg/dL (65-105) H 05/28/18 08:19 Calcium 8.4 mg/dl (8.6-10.4) L 05/28/18 08:19 Total Bilirubin 1.1 mg/dL (0.2-1.3) 05/28/18 08:19 AST 18 U/L (14-36) 05/28/18 08:19 ALT 31 U/L (9-52) 05/28/18 08:19 Alkaline Phosphatase 46 U/L (38-126) 05/28/18 08:19 Total Protein 6.7 g/dL (6.3-8.3) 05/28/18 08:19 Albumin 3.9 g/dL (3.5-5.0) 05/28/18 08:19 Globulin 2.8 gm/dL (2.2-3.9) 05/28/18 08:19 Albumin/Globulin Ratio 1.4 (1.0-2.1) 05/28/18 08:19 Lipase 113 U/L (23-300) 05/27/18 06:30 TSH 3rd Generation 2.40 mIU/L (0.46-4.68) 05/28/18 08:19 Venous Blood Potassium 3.9 mmol/L (3.6-5.2) 05/27/18 10:46 Urine Color Chelsey (YELLOW) 05/27/18 06:30 Urine Clarity Hazy (Clear) 05/27/18 06:30 Urine pH 5.0 (5.0-8.0) 05/27/18 06:30 Ur Specific [place] 1.031 (1.003-1.030) H 05/27/18 06:30 Urine Protein 3+ mg/dL (NEGATIVE) H 05/27/18 06:30 Urine Glucose (UA) Normal mg/dL (Normal) 05/27/18 06:30 Urine Ketones Negative mg/dL (NEGATIVE) 05/27/18 06:30 Urine Blood Negative (NEGATIVE) 05/27/18 06:30 Urine Nitrate Negative (NEGATIVE) 05/27/18 06:30 Urine Bilirubin Negative (NEGATIVE) 05/27/18 06:30 Urine Urobilinogen Normal mg/dL (0.2-1.0) 05/27/18 06:30 Ur Leukocyte Esterase Neg Yanira/uL (Negative) 05/27/18 06:30 Urine WBC (Auto) 5 /hpf (0-5) 05/27/18 06:30 Urine RBC (Auto) 10 /hpf (0-3) H 05/27/18 06:30 Ur Squamous Epith Cells 20 /hpf (0-5) H 05/27/18 06:30 Urine Bacteria Rare (<OCC) 05/27/18 06:30 Hyaline Casts >20 /lpf (0-2) H 05/27/18 06:30 Granular Casts (Auto) 6 /lpf (0-1) 05/27/18 06:30 Urine HCG, Qual Negative (NEGATIVE) 05/27/18 06:30 B-Hydroxybutyrate 0.20 mM (0.02-0.27) 05/27/18 06:30 - Hospital Course Hospital Course: Patient is a 52 year old female with a PMHx of DM2, HTN, hypothyroidism, acid reflux, currently being treated for bronchitis(on day 3 of z-pack) who presents to the ED today with complaints of post-prandial acute abdominal pain and 3 episodes of non-bloody, non-bilious emesis that began yesterday at 1pm. Patient reports eating a lunch consisting of rice and vegetables and experienced pain and emesis shortly thereafter. Patient reports pain is sharp/crampy, persistent, isolated to the epigastrium. Patient reports she never experienced these symptoms before. Her last BM was yesterday evening, formed, not dark or bloody. Denies chills, chest pain, SOB, nausea, dysuria. During stay, patient had CT abd/pelvis indicated partial SBO. However, pt pain subsided, patient tolerated diet, did not have any complaints, stable for D/C per surgery. Above is only brief course of pt stay in hospital, see EMR for full details. Below are discharge instructions provided to patient upon discharge. Patient is stable for discharge per Dr. Centeno. Please take the following 2 medications as prescribed for full 7 days. - Ciprofloxacin 500 mg every 12 hours - Flagyl 500 mg every 12 hours Please continue taking your regular home medications. Please also eat yogurt with probiotics for the next 30 days as it will help prevent secondary effects from the antibiotics. Please follow up with your primary doctor within 1 week. If any of the symptoms return or worsen, return to your nearest medical facility. Discharge Exam - Head Exam Head Exam: ATRAUMATIC, NORMAL INSPECTION, NORMOCEPHALIC - Eye Exam Eye Exam: EOMI, Normal appearance Pupil Exam: NORMAL ACCOMODATION - ENT Exam ENT Exam: Mucous Membranes Moist - Respiratory Exam Respiratory Exam: Clear to PA & Lateral, NORMAL BREATHING PATTERN, UNREMARKABLE. absent: Rales, Rhonchi, Wheezes - Cardiovascular Exam Cardiovascular Exam: +S1, +S2. absent: Systolic Murmur - GI/Abdominal Exam GI & Abdominal Exam: Normal Bowel Sounds, Soft, Unremarkable. absent: Hyperactive Bowel Sounds - Extremities Exam Extremities exam: full ROM, normal inspection Additional comments: no pedal edema, no calf tenderness - Back Exam Back exam: absent: CVA tenderness (L), CVA tenderness (R) - Neurological Exam Neurological exam: Alert, Oriented x3 - Psychiatric Exam Psychiatric exam: Normal Affect, Normal Mood - Skin Skin Exam: Dry, Intact, Normal Color, Warm Discharge Plan - Discharge Medications Prescriptions: Ciprofloxacin [Cipro] 500 mg PO Q12H #14 tab Metronidazole [Flagyl] 500 mg PO Q12H #14 tablet - Follow Up Plan Condition: STABLE Disposition: HOME/ ROUTINE Instructions: Ciprofloxacin (Systemic), Metronidazole (Systemic), Acute Abdominal Pain (DC), Acute Abdominal Pain (GEN) Additional Instructions: Patient is stable for discharge per Dr. Centeno. Please take the following 2 medications as prescribed for full 7 days. - Ciprofloxacin 500 mg every 12 hours - Flagyl 500 mg every 12 hours Please continue taking your regular home medications. Please also eat yogurt with probiotics for the next 30 days as it will help prevent secondary effects from the antibiotics. Please follow up with your primary doctor within 1 week. If any of the symptoms return or worsen, return to your nearest medical facility. Referrals: Efra Centeno Jr., MD [Medical Doctor] -
== END 2018-05-28 20:45 | disposition home or self-care (01) | DRG 390 ==
LOC: C.ER 06:09 → C.9E 11:24 → C.3T 12:50
PROVIDERS: ADMIT Internal Medicine; ATTEND Internal Medicine
DX: K56.600 Partial intestinal obstruction, unspecified as to cause (principal); E03.9 Hypothyroidism, unspecified; E11.9 Type 2 diabetes mellitus without complications; I10 Essential (primary) hypertension; E78.00 Pure hypercholesterolemia, unspecified; K21.9 Gastro-esophageal reflux disease without esophagitis; J40 Bronchitis, not specified as acute or chronic